=== PATIENT | female | born 1995 | race Caucasian/White ===

== ENCOUNTER 2023-03-23 09:44 | Emergency (ER) | payer SELFPAY ==
[2023-03-23 09:46] VITALS: BP 142/86; PULSE 102; RESP 16; TEMP 36.4; O2SAT 96; BMI 27.3
--- NOTE | 2023-03-23 10:05 | EX.ED.DYSGE1 ---
HPI History of Present Illness Chief Complaint: Seizure Detail of Chief Complaint: Seizure Informant: patient Narrative Narrative: Patient presents to the emergency department after sustaining a seizure while at work today. Patient states that she was eating lunch when she remembers waking up and EMS was there. Bystander states that she had a seizure lasted about 2 minutes. Patient has a known seizure disorder. Her last seizure was about 4 5 months ago. Patient lives in [place] and her neurologist is in [place]. Patient takes oxy carbamazepine as well as Keppra. She tells me she been compliant with her medications. She denies recent illness. Patient also states that she injured her left elbow when she fell when she tripped over her dog yesterday. She denies headache. Denies neck pain. Complains of some mild pain from biting her tongue. [facility] Medical History (Updated 03/23/23 @ 11:[address] Mckinley Dutta DO) Seizures Allergy/AdvReac Type Severity Reaction Status Date / Time No Known Allergies Allergy Verified 03/23/23 09:46 Social History Smoking Status: Never smoker ROS ROS ED Review of Systems ROS Unobtainable: other Constitutional Constitutional ED: Reports lethargy; Denies chills, fever(s), sweats or weight loss Eyes Eyes: Denies blurry vision, change in vision or diplopia ENT ENT ED: Reports other Details: Tongue pain from bite wounds ; Denies rhinorrhea or sore throat Cardiovascular Cardiovascular: Denies chest pain, orthopnea or racing heartbeat Respiratory/Chest Respiratory/Chest: Denies cough, dyspnea, dyspnea on exertion, orthopnea or sputum Gastrointestinal Gastrointestinal: Denies abdominal pain, diarrhea, nausea or vomiting Genitourinary Genitourinary ED: Denies dysuria, hematuria or urinary frequency Musculoskeletal Musculoskeletal: Reports other Details: Left elbow pain ; Denies arthralgias, back pain, myalgias or neck pain Integumentary Denies abscess, Abrasions or rash Neurologic Neurologic: Denies headache(s) or weakness Psychiatric Psychiatric: Denies anxiety, depression or suicidal thoughts Endocrine Endocrinology: Denies polydipsia, polyphagia or polyuria Hematologic/Lymphatic Hematologic/Lymphatic: Denies easy bleeding, easy bruising or lymphadenopathy Allergic/Immunologic Allergic/Immunologic ED: Denies mouth swelling, tongue swelling or urticaria EXAM Physical Exam Const Vital Signs: 03/23/23 09:46 03/23/23 11:49 Temperature 97.5 F L Temperature Source Temporal Pulse Rate 102 H 87 Respiratory Rate 16 16 Blood Pressure 142/86 H 132/74 H Blood Pressure Mean 104 93 Pulse Ox 96 99 Positive well nourished and well developed General Appearance ED: well developed and NAD HEENT Reports TM's clear and moist mucous membranes HEENT Narrative: Superficial bite wounds to the lateral aspects of tongue bilaterally. normocephalic and atraumatic; Negative for trauma or tenderness Tympanic Membrane ED: Yes TM's clear Eyes PERRL and EOMs intact bilaterally General Eye ED: Negative for pale conjunctiva or scleral icterus Neck no lymphadenopathy, supple and no JVD General: Negative for tenderness Chest Wall inspection of chest normal and palpation of chest normal Chest: Negative for tenderness Resp normal respiratory effort and clear to auscultation bilaterally Effort and Inspection: Negative for respiratory distress or pain with movement Auscultation: Negative for rhonchi, wheezes or diminished lung sounds Cardio regular rate, regular rhythm, S1 normal heart sound, S2 normal heart sound and no murmurs Peripheral Pulses: pulses 2+ throughout GI normal to inspection, nondistended, normoactive bowel sounds, soft to palpation, non-tender, non-distended and no masses Back/Spine no CVA tenderness and no thoracic nor lumbar tenderness Extremity Extremity Narrative: Soft tissue swelling diffusely about the elbow. Patient is superficial abrasion over the area of the olecranon. She has pain with range of motion. She is neurovascular intact distally. General Extremety ED: Negative for edema General Extremity: Negative for edema Neuro oriented x3, CN's II-XII intact bilaterally, no sensory deficits noted and gait normal Sensorium / Orientation: awake, alert, oriented to person, oriented to place and oriented to time Motor Exam: strength 5/5 throughout and strength abnormal Psych mental status grossly normal Skin no rashes or lesions noted and no wounds MDM MDM MDM Narrative Medical decision making narrative: Patient with history of seizures presents after having a seizure last about 2 minutes. Initially she told me she has not missed doses of her medications but then subsequently told me that she did miss the Oxy carbamazepine twice in the last 24 hours and also did not take her Keppra last dose. Patient was given a dose of Keppra. We do not carry the oxy carbamazepine. Patient clinically looks well. She is advised to take her Norma carbamazepine when she gets home. Patient will be given an Ghanshyam wrap for her left elbow. Lab Data Attestation: I reviewed the patient's lab results. Labs: Laboratory Results - last 24 hr 03/23/23 10:15 WBC 5.9 RBC 4.51 Hgb 13.5 Hct 40.7 MCV 90.2 MCH 29.9 MCHC 33.2 RDW Std Deviation 40.8 RDW Coeff of Tomasa 12.4 Plt Count 299 MPV 9.1 Immature Gran % (Auto) 0.200 Neut % (Auto) 55.7 Lymph % (Auto) 31.7 Arthur % (Auto) 8.9 Eos % (Auto) 3.0 Baso % (Auto) 0.5 Absolute Neuts (auto) 3.3 Absolute Lymphs (auto) 1.88 Nucleated RBC % 0 Sodium 142 Potassium 3.9 Chloride 108 H Carbon Dioxide 28.0 Anion Gap 6 BUN 8 Creatinine 0.77 Estim Creat Clear Calc 89.98 Est GFR (MDRD) Af Amer 114 Est GFR (MDRD) Non-Af 94 BUN/Creatinine Ratio 10.3 Glucose 93 Calcium 8.5 Total Bilirubin 0.30 AST 42 H ALT 41 Alkaline Phosphatase 51 Total Protein 7.7 Albumin 3.9 Globulin 3.8 Albumin/Globulin Ratio 1.0 Carbamazepine < 0.5 L Radiography Diagnostic Testing: Clinical Impression(s) from Imaging Studies Elbow X-Ray 03/23/23 10:24 IMPRESSION: Normal x-ray examination of the elbow. Electronically Signed: Enrico Navarro MD at 10:43 EST , Three-view x-rays of left elbow obtained interpreted by myself as no evidence of fracture or dislocation. Radiology in agreement. Discharge Plan Triage Chief Complaint: Seizure ED Provider: Mckinley Dutta Dx/Rx/DC Orders Clinical Impression: Seizure, Contusion of left elbow Instructions: ED Contusion, Elbow, ED Seizure, Recurrent (Adult) Stand Alone Forms: ED Work / School Excuse Primary Care Provider: Care Physician,No Primary Referrals: Town Doctor,Out of [Non-Staff] - Activity Restrictions/Additional Instructions: Take your seizure medication as indicated. Disposition Disposition: Home, Self Care Discharge Date/Time: 03/23/23 11:50
--- NOTE | 2023-03-23 10:24 | RAD_ITS ---
STUDY: X-RAY - LEFT ELBOW REASON FOR EXAM: Female, 28 years old. Pain following a fall. TECHNIQUE: 3 view(s) of the elbow. COMPARISON: None. FINDINGS: Normal visualized humerus, radius and ulna. Normal radiocapitellar and ulnotrochlear articulations. The soft tissue structures are unremarkable. RAD/Elbow min 3 Views IMPRESSION: Normal x-ray examination of the elbow. Electronically Signed: Enrico Navarro MD at 10:43 EST ,
[2023-03-23 10:25] LABS: Absolute Lymphocyte Count 1.88 X10^3/uL (0.83-4.51); Absolute Neutrophil Count 3.3 X10^3/uL (2.0-7.7); Basophil# 0.03 X10^3/uL; Basophil% 0.5 % (0-1); Eosinophil# 0.18 X10^3/uL; Hematocrit 40.7 % (37-47); Hemoglobin 13.5 g/dL (12.0-15.0); Lymphocyte # 1.88 X10^3/ul (0.83-4.51); Lymphocyte % 31.7 % (19-41); Mean Corp Hgb Conc 33.2 g/dL (32-36); Mean Corpuscular Hgb 29.9 pg (27.0-32.0); Mean Corpuscular Volume 90.2 fL (81-99); Mean Platelet Vol. 9.1 fl (6.2-12.0); Monocyte# 0.53 X10^3/uL; Monocyte% 8.9 % (0-10); NRBC Flagged by Analyzer 0 % (0-5); Neutrophil % 55.7 % (47-70); Platelet Count 299 K/mm3 (150-450); RBC Distribution Width CV 12.4 % (11.6-14.6); RBC Distribution Width SD 40.8 fl (35.1-43.9); Red Blood Count 4.51 M/mm3 (4.2-5.4); White Blood Count 5.9 K/mm3 (4.4-11.0)
[2023-03-23 10:36] LABS: AST(SGOT) 42 U/L (15-37); Alanine Aminotransfer ALT/SGPT 41 U/L (13-56); Albumin, Serum 3.9 g/dL (3.2-5.0); Alkaline Phosphatase 51 U/L (45-117); Anion Gap 6 (5-15); BUN 8 mg/dL (7-18); BUN/Creat Ratio 10.3 RATIO (10-20); Calcium,Total 8.5 mg/dL (8.5-10.1); Chloride 108 mmol/L (98-107); Creatinine, Serum 0.77 mg/dL (0.55-1.02); EST Glomerular Filtration Rate 94 mL/min (>60); Est Glom Filt Rate - Afr Amer 114 mL/min (>60); Estimated Creatinine Clearance 89.98 ml/min; Globulin 3.8 g/dL (2.2-4.2); Glucose 93 mg/dL (74-106); Potassium 3.9 mmol/L (3.5-5.1); Protein, Total 7.7 g/dL (6.4-8.2); Sodium Level 142 mmol/L (136-145)
[2023-03-23 10:38] LABS: Carbamazepine (Tegretol) < 0.5 ug/mL (4.0-12.0)
[2023-03-23] MEDS: levETIRAcetam 750 MG Tablet PO (11:48)
[2023-03-23 11:49] VITALS: BP 132/74; PULSE 87; RESP 16; O2SAT 99
== END 2023-03-23 11:50 | disposition home or self-care (01) ==
PROVIDERS: Emergency Provider Emergency Medicine; Visit Provider Emergency Medicine
DX: R56.9 Unspecified convulsions (principal); S50.02XA Contusion of left elbow, initial encounter; W19.XXXA Unspecified fall, initial encounter
CPT/HCPCS: 73080; 80053; 80156; 85025; 99284; J7030